=== PATIENT | female | born 1980 | race Caucasian/White ===

== ENCOUNTER 2023-09-28 08:03 | Day surgery (SDC) | payer MEDICAID ==
[~2023-09-28] VITALS: Ht 165.1 cm; Wt 61.2 kg
[2023-09-28 08:35] LABS: HCG,QUAL RESULT NEGATIVE (NEGATIVE)
[2023-09-28] MEDS ORDERED: MIDAZOLAM HCL 5 MG/5 ML VIAL ONE (09:53)
[2023-09-28] MEDS ORDERED: MEPERIDINE 100 MG INJ. 100 MG/ML VIAL ONE (09:53)
[2023-09-28 15:34] VITALS: O2SAT 100
[2023-09-28 15:38] VITALS: BP_SYST 103; PULSE 60; RESP 20
== END 2023-09-28 12:09 | disposition home or self-care (01) ==
LOC: SDS 08:03 → SMU 08:05 → SDS 12:09
PROVIDERS: ATTEND Internal Medicine Gastroenterology
DX: Z12.11 Encounter for screening for malignant neoplasm of colon (principal); K64.8 Other hemorrhoids; I10 Essential (primary) hypertension; Z98.891 History of uterine scar from previous surgery; Z79.899 Other long term (current) drug therapy; Z88.0 Allergy status to penicillin; Z83.79 Family history of other diseases of the digestive system
CPT/HCPCS: 84703; 45378; 99152; G0378; J2250; J2175